=== PATIENT | male | born 1945 | race Caucasian/White ===

== ENCOUNTER 2025-02-23 10:40 | Day surgery (SDC) | payer OTHER, SELFPAY ==
--- NOTE | 2025-02-22 11:39 | ESHP_ITS ---
RE: COURTNEY CANALES : 1945 DATE OF ADMISSION: 02/22/2025 HISTORY OF PRESENT ILLNESS: The patient is an 79-year-old gentleman with a history of elevated PSA of 9.4, nocturia x4. Urinary stream is slowing. PAST SURGICAL HISTORY: Previous surgery included pacemaker insertion. SOCIAL HISTORY: He has 2 children. PAST MEDICAL HISTORY: He has no history of diabetes mellitus. No history of hypertension. ALLERGIES: NONE KNOWN. HOME MEDICATIONS: He takes; 1. Statin medication. 2. Tamsulosin 0.4 mg every night. 3. Finasteride 5 mg every day. PHYSICAL EXAMINATION: HEENT: Normal. Neck: Supple. Lungs: Clear. Cardiovascular: Heart sounds are normal. Abdomen: Soft without any organomegaly. No guarding. No rigidity. Extremities: Normal. Genitourinary: Phallus is normal. Testes are down in the scrotum. Rectal examination reveals moderately enlarged prostate with the right lobe is very hard with a prostatic nodule on the right lobe. IMPRESSION: 1. Prostatism. 2. Prostatic obstruction. 3. Elevated PSA. 4. Right prostatic lobe nodule, which is very hard. PLAN: Cystoscopy, transrectal prostatic ultrasound with ultrasound-guided prostatic needle biopsy. Planned procedure, risks and complications have been discussed with the patient. The patient has understood them and agreed to proceed. Thank you very much for your kind referral. cc: Dr. Ruy Tamayo DT: 11:09:46 TT: 11:38:00 Ref: [id number] - TID: [id number]
--- NOTE | 2025-02-22 12:26 | EKG_ITS ---
[facility] Test Date: 2025-02-22 Pat Name: COURTNEY CANALES Department: Room: - Gender: Male Senior [employer] Developer: RT STUDENT : 1945 Requested By: Marlon Burgess Order Number: [id number] Reading MD: Marlon Burgess Measurements Intervals [place] Rate: 79 P: -47 MI: 209 QRS: 269 QRSD: 116 T: 66 QT: 396 QTc: 456 Interpretive Statements ELECTRONIC ATRIAL PACEMAKER MARKED RIGHT AXIS DEVIATION [QRS AXIS > 100] RIGHT BUNDLE BRANCH BLOCK [120+ ms QRS DURATION, UPRIGHT V1, 40+ ms S IN I/aVL/V4/V5/V6] POSSIBLE ANTERIOR MYOCARDIAL INFARCTION , OF INDETERMINATE AGE [30 ms Q WAVE IN V3/V4, OR R < 0.2 mV IN V4] No previous ECG available for comparison /store/S0/[id number]/ecg/[id number].pdf
[2025-02-22 12:36] VITALS: BMI 24.3
[2025-02-22 13:10] LABS: Collection Type, Urine Clean Catch; Squamous Epithelial Cell,Urine 0 /hpf (0-5)
[2025-02-22 13:34] LABS: Basophils # (Auto) 0.0 Thou/mm3 (0.0-0.2); Basophils % (Auto) 0 % (0-2.5); Eosinophils # (Auto) 0.1 Thou/mm3 (0.0-0.5); Eosinophils % (Auto) 1 % (0-10); Hematocrit 41.5 % (41.0-53.0); Hemoglobin 13.5 g/dL (13.5-16.0); Immature Granulocytes Auto 0.02 Thou/mm3 (0.00-0.00); Lymphocytes # (Auto) 1.5 Thou/mm3 (1.0-4.8); Lymphocytes % (Auto) 21 % (10-50); Mean Corpuscular HGB Conc 32.5 g/dl (31.0-37.0); Mean Corpuscular Hemoglobin 30.3 pg (25.0-35.0); Mean Corpuscular Volume 93 fL (80-100); Monocytes # (Auto) 0.7 Thou/mm3 (0.0-0.8); Monocytes % (Auto) 10 % (0-12); Neutrophils # (Auto) 4.8 Thou/mm3 (1.8-7.7); Neutrophils % (Auto) 67 % (37-80); Nucleated Red Blood Cell # 0.00 Thou/mm3 (0.00-0.00); Nucleated Red Blood Cell % 0 /100 WBC (0); Platelet Count 191 Thou/mm3 (140-440); RDW Standard Deviation 44.4 fL (35.1-43.9); Red Blood Count 4.45 Miln/mm3 (4.50-5.90); White Blood Count 7.2 Thou/mm3 (3.8-10.6)
[2025-02-22 13:37] LABS: Bilirubin,Urine Negative (Negative); Blood,Urine 2+ (Negative); Clarity,Urine Clear (Clear/Hazy); Glucose, Urine Negative (Negative); Ketones,Urine Negative (Negative); Leukocyte Esterase,Urine Negative (Negative); Nitrite,Urine Negative (Negative); PH,Urine 7.0 (5.0-7.0); Protein,Urine Negative (Neg - Trace); RBC,Urine 89 /hpf (0-3); Specific Gravity,Urine 1.015 (1.001-1.035); Urobilinogen,Urine Negative mg/dL (0.0-1.0); WBC,Urine < 1 /hpf (0-5)
[2025-02-22 13:49] LABS: Alanine Aminotransferase 13 U/L (10-49); Albumin, Serum 4.2 gm/dL (3.4-4.8); Albumin/Globulin Ratio 1.9 (1.2-2.2); Alkaline Phosphatase 66 U/L (46-116); Anion Gap 8 (7-16); Aspartate Amino Transferase 11 U/L (0-34); BUN/Creatinine Ratio 13 Ratio (12-20); Bilirubin,Total 0.8 mg/dL (0.3-1.2); Blood Urea Nitrogen 16 mg/dL (9-23); Calcium 9.8 mg/dL (8.3-10.6); Calcium (Corrected) 9.8 mg/dL (8.5-10.1); Carbon Dioxide 27.0 mMol/L (20.0-31.0); Chloride 104 mMol/L (98-107); Creatinine (Component) 1.2 mg/dL (0.6-1.3); Estimated Creatinine Clearance 46.7 mL/min (>60); Globulin 2.2 gm/dL (2.3-3.5); Glucose 93 mg/dL (74-106); Osmolality,Calculated 278 (275-295); Potassium 4.3 mMol/L (3.4-5.1); Sodium 139 mMol/L (136-145); Total Protein 6.4 gm/dL (5.7-8.2); eGFR > 60 See Note
[2025-02-22 13:59] LABS: Color,Urine Lt-Yellow (Lt Yel-Yel)
--- NOTE | 2025-02-22 14:54 | SUR.PREOP ---
Cardiac records requested from Dr Robin office, waiting....,Cardiac history reviewed with Dr Mayorga.
--- NOTE | 2025-02-23 10:54 | CHAP ---
Visited with patient giving encouragement and prayer.
[2025-02-23 11:06] VITALS: BP 140/90; PULSE 82; RESP 17; TEMP 36.2; O2SAT 99; BMI 23.8
[2025-02-23] MEDS: RINGERS LACTATED 1000 ML 1,000 ML 20 ML IV (11:23)
--- NOTE | 2025-02-23 12:45 | XR_ITS ---
Examination: Transrectal prostate sonography TECHNIQUE: Grayscale transrectal sonographic images of the prostate Date and time: May 25, 2025 1250 hours INDICATIONS: Prostate biopsies by physician in the OR today ultrasound-guided FINDINGS: Multiple transrectal prostate sonographic images Prostate volume 46.55 cc IMPRESSION: Transrectal prostate sonography
[2025-02-23 13:15] VITALS: BP 121/77; PULSE 64; RESP 19; TEMP 36.3; O2SAT 99
[2025-02-23 13:20] VITALS: BP 130/80; PULSE 60; RESP 16; O2SAT 100
[2025-02-23 13:25] VITALS: BP 124/87; PULSE 60; RESP 13; TEMP 36.4; O2SAT 100
[2025-02-23 13:40] VITALS: BP 117/74; PULSE 60; RESP 20; O2SAT 98
[2025-02-23 13:55] VITALS: BP 125/70; PULSE 60; RESP 20; TEMP 36.6; O2SAT 98
--- NOTE | 2025-02-23 14:45 | ESOP_ITS ---
RE: COURTNEY CANALES : 1945 DATE OF OPERATION: 02/23/2025 PREOPERATIVE DIAGNOSIS: Prostatism, prostatic obstruction, elevated PSA of 9.4. POSTOPERATIVE DIAGNOSIS: Prostatism, prostatic obstruction, elevated PSA of 9.4. PROCEDURE PERFORMED: Cystoscopy, urethral dilatation, transrectal prostatic ultrasound with ultrasound-guided prostatic needle biopsy. ANESTHESIA: Monitored anesthesia by Dr. Mayorga. INDICATION: The patient is an 79-year-old gentleman with elevated PSA of 9.4, nocturia four times with slowing urinary stream. Rectally, he has a moderately large prostate with a firm nodule on the right prostatic lobe. The patient is scheduled to have cystoscopy, urethral dilatation, transrectal prostatic ultrasound with ultrasound-guided prostatic needle biopsy. Planned procedure, risks, and complications have been discussed with the patient. The patient has understood them and agreed to proceed. DESCRIPTION OF PROCEDURE: After the patient was brought to the operating table, under adequate monitored anesthesia and dorsal lithotomy position, parts were prepped and draped in the usual fashion. Cystoscopy was then carried out, which revealed adequate urethral meatus, normal-appearing urethra, moderately large prostate with some median lobe enlargement. Residual urine 4 ounces, yellow and clear. There are no intravesical stones or tumors. Ureteral orifices are found to be close to bladder neck. Bladder mucosa is moderately trabeculated. Scope was withdrawn. Urethra was dilated. The patient was then turned in left lateral position. Transrectal prostatic ultrasound was carried out. Biopsies were obtained from both lobes using ultrasound guidance. Prostatic volume was measured at 46.55 cubic cm. Biopsies were obtained from both lobes and from the left lobe prostatic nodule, finger-guided biopsy was also done. The patient tolerated the entire procedure well and left the room in good condition. DT: 13:20:19 TT: 14:38:00 Ref: [id number] - TID: [id number]
--- NOTE | 2025-02-23 15:02 | SUR.PHASEII ---
1315: Pt received in [facility] via gurney. Report from Giles NELSON and Ruy RN. Pt groggy. Easily aroused. Resp even, unlabored. VS stable. No rectal bleeding. Denies pain. 1358: Pt more awake, alert. Resp even, unlabored. VS stable. Denies pain. Pt tolerating po fluids with no difficulty swallowing and no n/v. 1416: Pt fully awake, oriented x3. Pt dressed and assisted to restroom to void. Ambulation steady. Pt and stated understanding of discharge instructions. Pt discharged from [facility] in stable condition.
== END 2025-02-23 14:16 | disposition home or self-care (01) ==
PROVIDERS: Anesthesiology; PCP Nurse Practitioner Family; Referring Provider Surgery; Visit Provider Surgery
PROC: 0TJB8ZZ Inspection of Bladder, Via Natural or Artificial Opening Endoscopic (ICD-10-PCS; CPT 52000; principal; 2025-02-23 12:45)
PROC: (CPT 55700; 2025-02-23 12:45)
DX: C61 Malignant neoplasm of prostate (principal); Z95.0 Presence of cardiac pacemaker; Z01.810 Encounter for preprocedural cardiovascular examination; I45.10 Unspecified right bundle-branch block
CPT/HCPCS: 52281; 55700; 36415; 76942; 80053; 81001; 85025; 87086; 93005; A4217; A4649; J0694; J2704; J3010; J3490; J7120

== ENCOUNTER → 2025-04-26 | Outpatient (CLI) | payer OTHER, SELFPAY ==
--- NOTE | 2025-04-26 13:15 | XR_ITS ---
Examination: Bone scan whole body, radioisotope Date and time of exam: April 26, 2025, 0850 hours INDICATIONS: Diagnosis malignant neoplasm of prostate slow urination frequent urination elevated PSA Technique: Study has been performed with intravenous administration of, staging 24.1 mci 99M technetium MDP. Anterior, posterior whole body images are obtained. Images have been obtained including the lower extremities. Findings: Nonspecific increased uptake left sternoclavicular joint Minimally increased uptake right maxilla IMPRESSION: No findings diagnostic for osseous metastatic disease
== END | disposition home or self-care (01) ==
LOC: SNUC 08:11
PROVIDERS: PCP Nurse Practitioner Family; Referring Provider Surgery; Visit Provider Surgery
DX: C61 Malignant neoplasm of prostate (principal)
CPT/HCPCS: 78306; A9503

== ENCOUNTER → 2025-04-27 | Outpatient (CLI) | payer OTHER, SELFPAY ==
--- NOTE | 2025-04-27 07:30 | XR_ITS ---
Examination: CT pelvis without intravenous contrast. 2-D sagittal and coronal reconstructions. Date and time of exam: April 27, 2025, 0740 hours INDICATIONS: Diagnosis malignant neoplasm of prostate 1 month ago, staging CTDI: vol (mGy) : 6.47 DLP: (mGycm) : 227 Technique: Multiple 3 mm axial sections of the pelvis have been obtained with the 64 slice high resolution scanner. 2-D sagittal and coronal reconstructions. Low dose protocols were performed. One or more of the following dose reduction techniques were used; automated exposure control, adjustment of the mA and/or KV according to patient size, use of iterative reconstruction technique. Findings: Prominent right renal pelvis Left internal iliac 19 mm 8 mm lymph nodes Prostate is enlarged with marked irregular contour, AP dimension 5 cm Urinary bladder intact No osteoblastic metastatic disease IMPRESSION: Significant prostatomegaly, markedly irregular prostate contour 19 mm 8 mm left internal iliac lymph nodes, consider PET/CT scan follow-up
== END | disposition home or self-care (01) ==
PROVIDERS: PCP Internal Medicine; Referring Provider Surgery; Visit Provider Surgery
DX: N40.0 Benign prostatic hyperplasia without lower urinary tract symptoms (principal); C61 Malignant neoplasm of prostate
CPT/HCPCS: 72192